=== PATIENT | female | born 1985 | race American Indian/Alaskan Native ===

== ENCOUNTER 2020-02-11 23:14 | Emergency (ER) | payer SELFPAY ==
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
[2020-02-11 23:52] LABS: Bacteria,Urine 1+ /HPF (Negative); Bilirubin,Urine NEG (Negative); Blood,Urine NEG (Negative); Color,Urine Straw (Yellow); Hyaline Casts,Urine 3 /LPF; Mucus,Urine FEW /HPF; Protein,Urine <15 mg/dL mg/dL (Negative); Urobilinogen,Urine < 2.0 mg/dL (<2.0)
[2020-02-11 23:58] LABS: Amphetamine Screen,Urine PRESUMPTIVE NEGATIVE; Benzodiazepines Screen,Urine PRESUMPTIVE POSITIVE; Cannabinoid Screen,Urine PRESUMPTIVE POSITIVE; Cocaine Screen,Urine PRESUMPTIVE NEGATIVE; Methadone Screen,Urine PRESUMPTIVE NEGATIVE; Opiate Screen,Urine PRESUMPTIVE NEGATIVE
[2020-02-12] MEDS ORDERED: LORazepam 2 MG/ML VIAL ONE (00:49)
[2020-02-12] MEDS ORDERED: ZIPRASIDONE MESYLATE 20 MG VIAL IM ONE ×2 (00:50)
[2020-02-12] MEDS ORDERED: LORazepam 2 MG/ML VIAL IM ONE (00:50)
[2020-02-12] MEDS ORDERED: WATER FOR INJ Sterile (PF) 10 ML ONE (00:51)
[2020-02-12 00:53] LABS: Hematocrit 33.8 % (30.3-42.9); Hemoglobin 10.3 gm/dl (10.1-14.3); Mean Corpuscular HGB Conc 30 % (30-34); Platelet Count 183 K/mm3 (140-440); Red Blood Count 5.35 M/mm3 (3.65-5.03)
[2020-02-12 00:55] LABS: Mean Corpuscular Volume 63 fl (79-97); Red Cell Distribution Width 20.5 % (13.2-15.2)
[2020-02-12 01:17] LABS: Alanine Aminotransferase 11 units/L (7-56); Albumin 3.9 g/dL (3.9-5); BUN/Creatinine Ratio 10; Blood Urea Nitrogen 8 mg/dL (7-17); Calcium 8.8 mg/dL (8.4-10.2); Hemolysis Index 13
[2020-02-12 01:19] LABS: Bilirubin,Direct < 0.2 mg/dL (0-0.2)
--- NOTE | 2020-02-12 01:27 | Cat Scan Report ---
CT head without contrast INDICATION : Altered Mental Status and COMBATIVE!. TECHNIQUE: Axial imaging performed from the skull apex through the skull base without the use of con trast. All CT scans at this location are performed using CT dose reduction for ALARA by means of aut omated exposure control. COMPARISON: None FINDINGS: Parenchyma: No acute intracranial hemorrhage or parenchymal abnormality. Ventricles: Ventricles are normal in size and appear symmetric. Soft tissues: Soft tissues including the orbits appear normal. Bones: No acute osseous abnormality. Sinuses: Mild mucosal thickening in the left maxillary and right sphenoid sinuses. Remaining sinuses and mastoid air cells are clear. IMPRESSION: No acute abnormality. Signer Name: Mark Moon MD Signed: 02/12/2020 1:22 AM Workstation Name: [id number]
[2020-02-12 06:06] LABS: Total Cells Counted 100
[2020-02-12 06:07] LABS: Anisocytosis 1+; Hypochromasia 2+; Platelet Estimate Consistent w Auto; Spherocytes Few; Target Cells 2+
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
[2020-02-12] MEDS: risperiDONE 0.25 MG TAB PO SCH ×2 (13:21→22:50)
[2020-02-12] MEDS: DIVALPROEX DR 125 MG TAB PO SCH ×2 (13:21→22:50)
[2020-02-12 21:10] VITALS: BP 122/79
[2020-02-12] MEDS ORDERED: MELATONIN 5 MG TAB PO PRN (22:00)
[2020-02-12] MEDS ORDERED: traZODone 50 MG TAB PO SCH (22:00)
== END 2020-02-13 01:30 | disposition home or self-care (01) ==
LOC: ED 23:14
DX: F10.129 Alcohol abuse with intoxication, unspecified (principal)
CPT/HCPCS: 36415; 70450; 80307; 81001; 85007; 96372; 99285; J2060; J3486